=== PATIENT | male | born 1960 | race Caucasian/White ===

== ENCOUNTER 2023-10-24 19:26 | Emergency (ER) | payer SELFPAY ==
[~2023-10-24] VITALS: Ht 177.8 cm; Wt 77.0 kg
[2023-10-24 19:33] VITALS: BP 153/91; PULSE 92; RESP 16; TEMP 98; O2SAT 95
[2023-10-24] MEDS ORDERED: ACETAMINOPHEN 500MG TABLET PO ONE (20:00)
[2023-10-24] MEDS ORDERED: IBUPROFEN 600MG TABLET PO ONE (20:00)
[2023-10-24] MEDS ORDERED: IBUP-2028 MT (21:18)
== END 2023-10-24 21:56 | disposition home or self-care (01) ==
LOC: ER 19:26
DX: M25.552 Pain in left hip (principal); E11.9 Type 2 diabetes mellitus without complications; I10 Essential (primary) hypertension
CPT/HCPCS: 72170; 73552; 99284

== ENCOUNTER 2023-10-28 21:02 | Emergency (ER) | payer SELFPAY ==
[~2023-10-28 21:02] MED LIST: IBUP-2028 MT
[2023-10-28 21:09] VITALS: PULSE 89; RESP 16
== END 2023-10-28 21:32 | disposition left against medical advice (07) ==
LOC: ER 21:02
DX: Z76.0 Encounter for issue of repeat prescription (principal); Z53.21 Procedure and treatment not carried out due to patient leaving prior to being seen by health care provider